=== PATIENT | male | born 1955 | race Caucasian/White ===

== ENCOUNTER 2017-11-02 22:29 | Emergency (ER) | payer MEDICAID, SELFPAY ==
[~2017-11-02] VITALS: Ht 170.2 cm; Wt 71.8 kg
[2017-11-02 22:31] VITALS: BP 174/94
== END 2017-11-03 00:06 | disposition home or self-care (01) ==
LOC: ED 23:59
DX: S83.92XA Sprain of unspecified site of left knee, initial encounter (principal); I10 Essential (primary) hypertension; Z88.0 Allergy status to penicillin; W11.XXXA Fall on and from ladder, initial encounter; X58.XXXA Exposure to other specified factors, initial encounter; Y93.89 Activity, other specified; Y92.89 Other specified places as the place of occurrence of the external cause; Y99.8 Other external cause status
CPT/HCPCS: 29505; 99284

== ENCOUNTER 2018-09-14 19:11 | Emergency (ER) | payer SELFPAY ==
[~2018-09-14] VITALS: Ht 172.7 cm; Wt 72.8 kg
[2018-09-14 19:30] VITALS: BP 231/125
[2018-09-14] MEDS ORDERED: PROPARACAINE OPHTH 0.5%, 15ML EACHEYE ONE (20:00)
[2018-09-14 20:22] LABS: BASOPHILS # (AUTO) 0.03 x10^3/uL (0-0.1); BASOPHILS % (AUTO) 1 % (0-1); EOSINOPHILS % (AUTO) 4 % (1-7); LYMPHOCYTES # (AUTO) 1.46 x10^3/uL (1-3.4); LYMPHOCYTES % (AUTO) 31 % (22-44); MD NO; MEAN CORPUSCULAR HEMOGLOBIN 30.1 pg (27.5-34.5); MEAN CORPUSCULAR VOLUME 88.6 fL (81-97); MONOCYTES # (AUTO) 0.54 x10^3/uL (0.2-0.8); MONOCYTES % (AUTO) 11 % (2-9); NEUTROPHILS # (AUTO) 2.56 x10^3/uL (1.8-6.8); NEUTROPHILS % (AUTO) 54 % (42-75); PLATELET COUNT 274 x10^3/uL (130-400); RED BLOOD COUNT 5.01 x10^6/uL (4.38-5.82); RED CELL DISTRIBUTION WIDTH 14.2 % (9.4-14.8)
--- NOTE | 2018-09-14 20:22 | NUR ---
pt called to room from lobby
[2018-09-14 20:29] LABS: ALBUMIN 4.1 g/dL (3.4-5.0); ANION GAP 5 mmol/L (5-15); CALCIUM 8.7 mg/dL (8.5-10.1); CHLORIDE 109 mmol/L (98-107); CREATININE 1.37 mg/dL (0.7-1.3)
[2018-09-14] MEDS ORDERED: FLUORESCEIN OPHTHALMIC 1 MG STRIP ONE (20:48)
[2018-09-14] MEDS ORDERED: PROPARACAINE OPHTH 0.5%, 15ML ONE (20:48)
--- NOTE | 2018-09-14 20:57 | NUR ---
Proparacaine given to PA.
[2018-09-14] MEDS ORDERED: POLYTRIM OPHTH 10ML RIGHTEYE ONE (21:24)
[2018-09-14] MEDS ORDERED: FLUORESCEIN OPHTHALMIC 1 MG STRIP RIGHTEYE ONE (21:30)
--- NOTE | 2018-09-14 22:07 | NUR ---
PA aware of pts BP, pt medicated for HTN, pt verbalized importance of returning to ED for any worsening/concerning s/s
== END 2018-09-14 22:10 | disposition home or self-care (01) ==
LOC: ED 21:50
DX: S00.211A Abrasion of right eyelid and periocular area, initial encounter (principal); H05.011 Cellulitis of right orbit; J01.90 Acute sinusitis, unspecified; I10 Essential (primary) hypertension; F17.210 Nicotine dependence, cigarettes, uncomplicated; X58.XXXA Exposure to other specified factors, initial encounter; Y93.89 Activity, other specified; Y99.8 Other external cause status; Y92.89 Other specified places as the place of occurrence of the external cause
CPT/HCPCS: 36415; 71045; 80048; 82040; 85025; 93005; 99284

== ENCOUNTER 2018-09-17 17:12 | Emergency (ER) | payer SELFPAY ==
[~2018-09-17] VITALS: Ht 172.7 cm; Wt 71.5 kg
[2018-09-17] MEDS ORDERED: FLUORESCEIN OPHTHALMIC 1 MG STRIP RIGHTEYE ONE (18:00)
[2018-09-17] MEDS ORDERED: PROPARACAINE OPHTH 0.5%, 15ML RIGHTEYE STA (18:00)
[2018-09-17] MEDS ORDERED: POLYTRIM OPHTH 10ML RIGHTEYE STA (18:31)
[2018-09-17] MEDS ORDERED: AMLODIPINE 5 MG TABLET ONE (18:37)
--- NOTE | 2018-09-17 18:44 | NUR ---
PATIENT MEDICATED WITH NORVASC FOR BLOOD PRESSURE. REQUEST SLIP SENT TO PHARMACY FOR POLYTRIM.
[2018-09-17] MEDS ORDERED: AMLODIPINE 5 MG TABLET PO ONE (19:00)
--- NOTE | 2018-09-17 19:00 | NUR ---
[facility] BEDSIDE HAND-OFF REPORT GIVEN TO ELISSA POP.
--- NOTE | 2018-09-17 19:01 | NUR ---
report received from fabienne argueta.
--- NOTE | 2018-09-17 19:06 | NUR ---
PT MEDICATED PER EMAR. PT TOLERATED WELL.
[2018-09-17 19:42] VITALS: BP 161/107
--- NOTE | 2018-09-17 19:44 | NUR ---
pt given dc instructions and scripts. pt educated regarding dc medications. pt's aox4. resps even and unlabored. pt amb to dc with steady gait. no acute distress at dc.
== END 2018-09-17 19:44 | disposition home or self-care (01) ==
LOC: ED 18:37
DX: H10.31 Unspecified acute conjunctivitis, right eye (principal); I10 Essential (primary) hypertension
CPT/HCPCS: 99283

== ENCOUNTER 2018-11-12 15:28 | Emergency (ER) | payer SELFPAY ==
[~2018-11-12] VITALS: Ht 172.7 cm; Wt 72.5 kg
[2018-11-12 15:30] VITALS: BP 171/97
[2018-11-12] MEDS ORDERED: LIDOCAINE-MPF 1%, 5ML ONE (15:51)
[2018-11-12] MEDS ORDERED: LIDOCAINE-MPF 1%, 5ML INFIL ONE (16:00)
[2018-11-12] MEDS ORDERED: SULFAMETH./TRIMETHOPRIM DS 800MG/160MG TABLET ONE (16:19)
[2018-11-12] MEDS ORDERED: CEPHALEXIN 500 MG CAPSULE ONE (16:20)
[2018-11-12] MEDS ORDERED: SULFAMETH./TRIMETHOPRIM DS 800MG/160MG TABLET PO ONE (16:30)
[2018-11-12] MEDS ORDERED: CEPHALEXIN 500 MG CAPSULE PO ONE (16:30)
[2018-11-12] MEDS ORDERED: BACITRACIN ZINC OINT 500U/GM, 0.9 GM ONE (16:34)
== END 2018-11-12 16:54 | disposition home or self-care (01) ==
LOC: ED 16:51
DX: L02.413 Cutaneous abscess of right upper limb (principal); F17.200 Nicotine dependence, unspecified, uncomplicated; I10 Essential (primary) hypertension
CPT/HCPCS: 10060; 99283